=== PATIENT | female | born 1995 | race Caucasian/White ===

== ENCOUNTER 2023-05-05 11:44 | Emergency (ER) | payer BC, SELFPAY ==
[2023-05-05] VITALS (14 sets, daily range): BP systolic 107–135; BP diastolic 73–84; PULSE 72–87; RESP 14–20; TEMP 36.7; O2SAT 98; BMI 44.8
--- NOTE | 2023-05-05 12:12 | ED_ITS ---
HPI - General Adult General Chief complaint: Neuro Symptoms/Deficit Stated complaint: NUMBNESS TO FACE Time Seen by Provider: 05/05/23 12:12 Source: patient Mode of arrival: ambulance Limitations: no limitations History of Present Illness HPI narrative: Patient presents to emergency department via EMS with a complaint of numbness to her face, bilateral hands and lower extremities. Patient states she had a panic attack yesterday she has a history of anxiety. However this morning she was having another attack but she states that she never felt it to the point where it was as numbness was today. She takes Wellbutrin. She states she's felt dizzy. She denies any headache. She denies any trauma. She denies any nausea, vomiting, diarrhea, constipation, abdominal pain. She denies any chest pain. Has no previous history of heart disease or thrombotic embolic disease. Patient denies any blurred vision, or speech difficulties. She denies any difficulty swallowing. She denies any lower extremity edema, or cramping. Related Data Previous Rx's Medication Instructions Recorded hydroxyzine HCl 25 mg tablet 25 mg PO Q8H PRN anxiety #20 tabs 05/05/23 Allergies Allergy/AdvReac Type Severity Reaction Status Date / Time doxycycline AdvReac Mild Rash Verified 05/05/23 11:54 Review of Systems ROS Status of ROS 10 or more systems reviewed and unremarkable except as noted in history and below [facility] Social History Smoking status: Current every day smoker Exam Narrative Exam Narrative: Nurses notes and vital signs reviewed and patient is not hypoxic. General: Nontoxic, Well-appearing and in no apparent distress. Skin: Warm, dry, no pallor noted. No Rash Head: Normocephalic, atraumatic. Neck: Supple, non-tender. Eye: Pupils are equal, round and EOMI. No scleral icterus. Ears, Nose, Mouth, and Throat: TM clear, no posterior oropharynx erythema or nasal mucosal hypertrophy, uvula is mid-line Oral mucosa is moist Cardiovascular: Regular Rate and Rhythm without murmur, gallop or rub. Respiratory: No accessory muscle use or respiratory distress. Lungs are clear to auscultation, no wheezing, rales or rhonchi Chest Wall: no tenderness Back: No midline thoracic or lumbar vertebral tenderness. No CVA tenderness Musculoskeletal: normal ROM, no calf or popliteal tenderness, no lower extremity edema/swelling GI: Abdomen is soft, non-distended. Normal bowel sounds. No masses appreciated. No tenderness to palpation. No rebound, guarding, or rigidity noted. Neurological: A&O x4. No cranial nerve dysfunction observed. No truncal ataxia. Moves all extremities. Sensation intact. Psychiatric: Cooperative and interactive. anxiety Constitutional Vital Signs, click to edit/add: Last Vital Signs Temp 98.1 F 05/05/23 11:48 Pulse 77 05/05/23 13:30 Resp 18 05/05/23 13:30 BP 122/82 05/05/23 13:30 Pulse Ox 98 05/05/23 11:48 O2 Del Method Room Air 05/05/23 11:48 Course Vital Signs Vital signs: Vital Signs Blood Pressure 135/78 05/05/23 11:45 Temperature 98.1 F 05/05/23 11:48 Pulse Rate 77 05/05/23 13:30 Respiratory Rate 18 05/05/23 13:30 Blood Pressure 122/82 05/05/23 13:30 Pulse Oximetry 98 05/05/23 11:48 Oxygen Delivery Method Room Air 05/05/23 11:48 Medical Decision Making MDM Narrative Medical decision making narrative: EKG shows the patient is on bigeminy. The patient's blood pressure is normal. Patient is anxious. She is given 1 mg of Ativan by mouth. This has completely resolved her symptoms. However patient did go back into bigeminy. All labs studies are unremarkable. Patient will be discussed with Dr. meade. forging press operator. She was discussed with nurse practitioner for the forging press operator was advised to place an event monitor for 72 hours and order an echo as an outpatient and the patient should follow-up with them Monday morning. Patient remains asymptomatic. In terms have improved with Ativan. I will give the patient a prescription for hydroxyzine. At this time the patient is without objective evidence of an acute process requiring hospitalization or inpatient management. The patient has remained hemodynamically stable. No additional indication for emergent studies at this time. I answered all questions. Discussed discharge instructions including standard anticipatory guidance and what should prompt a return to the emergency department, including if they get worse are not getting better or develops any new or concerning symptoms. I've given them specific time frame in which to follow-up, and who to follow-up with. The patient demonstrates understanding. Patient is nontoxic and stable for discharge with outpatient follow-up. This note was created with the assistance of a speech recognition program. Although the intention is to generate documents that actually reflects the content of the visit, no guarantees can be provided that every mistake has been identified and corrected by editing. Lab Data Lab results reviewed: Yes I reviewed the patient's lab results Labs: Lab Results 05/05/23 Range/Units 12:04 WBC 7.1 (4.0-11.0) 10^3/uL RBC 4.58 (4.20-5.40) 10^6/uL Hgb 13.3 (12.0-16.0) g/dL Hct 40.0 (36.0-48.0) % MCV 87.3 (81.0-99.0) fL MCH 29.0 (26.7-34.0) pg MCHC 33.3 (29.9-35.2) g/dL RDW 11.9 (11.0-15.0) % Plt Count 299 (150-450) 10^3/uL MPV 10.4 (9.5-13.5) fL Neut % (Auto) 70.6 (43.0-75.0) % Lymph % (Auto) 19.6 L (20.5-60.0) % [place] % (Auto) 7.2 (1.7-12.0) % Eos % (Auto) 1.6 (0.9-7.0) % Baso % (Auto) 0.7 (0.2-2.0) % Neut # (Auto) 5.0 (1.4-6.5) 10^3/uL Lymph # (Auto) 1.4 (1.2-3.8) 10^3/uL [place] # (Auto) 0.5 (0.3-0.8) 10^3/uL Eos # (Auto) 0.1 (0.0-0.7) 10^3/uL Baso # (Auto) 0.1 (0.0-0.1) 10^3/uL Abs Immat Gran (auto) 0.02 (0.00-0.03) 10^3/uL Imm/Tot Granulo (auto) 0.3 (0.0-0.5) % Sodium 138 (136-145) mmol/L Potassium 4.7 (3.5-5.1) mmol/L Chloride 104 (98-107) mmol/L Carbon Dioxide 22.8 (21.0-32.0) mmol/L Anion Gap 15.9 BUN 8.0 (7.0-18.0) mg/dL Creatinine 0.71 (0.55-1.02) mg/dL Est GFR ( Amer) >60 (>=60) Est GFR (Non-Af Amer) >60 (>=60) BUN/Creatinine Ratio 11.3 Glucose 96 (74-106) mg/dL Calcium 9.2 (8.5-10.1) mg/dL Magnesium 1.9 (1.8-2.4) mg/dL Total Bilirubin 0.8 (0.2-1.0) mg/dL AST 29 (15-37) U/L ALT 22 (14-59) U/L Alkaline Phosphatase 63 (46-116) U/L Troponin I High Sens <4.0 L (4.0-51.3) pg/mL Total Protein 7.4 (6.4-8.2) g/dL Albumin 3.6 (3.4-5.0) g/dL Globulin 3.8 g/dL Albumin/Globulin Ratio 0.9 TSH 1.977 (0.358-3.740) uIU/mL ECG Data Attestation: I personally reviewed and interpreted this ECG as follows: Interpretation: Sinus rhythm 79 bpm. Frequent PVCs showing bigeminy pattern. Discharge Plan Discharge Chief Complaint: Neuro Symptoms/Deficit Clinical Impression: Bigeminy, Anxiety Patient Disposition: Home, Self-Care Time of Disposition Decision: 14:11 Condition: Good Mode of Transportation: Private Vehicle Prescriptions / Home Meds: New hydroxyzine HCl 25 mg tablet 25 mg PO Q8H PRN (Reason: anxiety) Qty: 20 0RF Instructions: Anxiety (ED) Additional Instructions: use the event monitor as instructed. Follow up with the forging press operator Monday morning for reevaluation. Get the echocardiogram done as an outpatient. Take the medication as needed for anxiety. Return to the emergency department (presents as discussed. Stand Alone Forms: Portal Instructions Referrals: Sid Cunningham MD [Physician] - 1 week
--- NOTE | 2023-05-05 12:20 | XR_ITS ---
[facility] [place] [address] Patient Name: HILARIO PHIPPS MRN: [id number] date: 1995 Sex: F Assigned Patient Location: ER Current Patient Location: ER Accession/Order Number: [id number] Exam Date: 05/05/2023 12:35 Report Date: 05/05/2023 13:12 At the request of: NAKIA BALDWIN Procedure: XR chest 1V XR chest 1V, 05/05/2023 12:35 PM EDT, OH001 INDICATION: anxiety COMPARISON: None TECHNIQUE: Frontal view of the chest obtained. FINDINGS: The heart is normal in size. The aorta and mediastinum appear unremarkable. The pulmonary vasculature is normal. The lungs are clear. There is no evidence of pneumothorax or pleural effusion. The osseous structures appear intact. XR/XR chest 1V IMPRESSION: No active pulmonary process. Electronically authenticated by: DAJA SUGGS Date: 05/05/2023 13:12
[2023-05-05] MEDS: LORAZEPAM 1 MG TABLET PO (12:27)
[2023-05-05 12:40] LABS: Basophils Absolute Auto 0.1 10^3/uL (0.0-0.1); Basophils Percent Auto 0.7 % (0.2-2.0); Eosinophils Absolute Auto 0.1 10^3/uL (0.0-0.7); Eosinophils Percent Auto 1.6 % (0.9-7.0); Hemoglobin 13.3 g/dL (12.0-16.0); Immature Granulocytes Abs Auto 0.02 10^3/uL (0.00-0.03); Immature Granulocytes Pct Auto 0.3 % (0.0-0.5); Lymphocytes Absolute Auto 1.4 10^3/uL (1.2-3.8); Lymphocytes Percent Auto 19.6 % (20.5-60.0); Mean Corpuscular HGB Conc 33.3 g/dL (29.9-35.2); Mean Corpuscular Volume 87.3 fL (81.0-99.0); Mean Platelet Volume 10.4 fL (9.5-13.5); Monocytes Absolute Auto 0.5 10^3/uL (0.3-0.8); Monocytes Percent Auto 7.2 % (1.7-12.0); Neutrophils Percent Auto 70.6 % (43.0-75.0); Platelet Count 299 10^3/uL (150-450); Red Blood Count 4.58 10^6/uL (4.20-5.40); Red Cell Distribution Width 11.9 % (11.0-15.0); White Blood Count 7.1 10^3/uL (4.0-11.0)
[2023-05-05 12:50] LABS: Anion Gap 15.9
[2023-05-05 13:00] LABS: Alanine Aminotransferase 22 U/L (14-59); Albumin Globulin Ratio 0.9; Albumin Level 3.6 g/dL (3.4-5.0); Alkaline Phosphatase 63 U/L (46-116); Aspartate Amino Transferase 29 U/L (15-37); BUN Creatinine Ratio 11.3; Bilirubin Total 0.8 mg/dL (0.2-1.0); Calcium 9.2 mg/dL (8.5-10.1); Carbon Dioxide 22.8 mmol/L (21.0-32.0); Chloride 104 mmol/L (98-107); Estimated GFR (African America >60 (>=60); Estimated GFR (Non-African Ame >60 (>=60); Globulin 3.8 g/dL; Glucose 96 mg/dL (74-106); Magnesium 1.9 mg/dL (1.8-2.4); Potassium 4.7 mmol/L (3.5-5.1); Sodium 138 mmol/L (136-145); Thyroid Stimulating Hormone 1.977 uIU/mL (0.358-3.740); Total Protein 7.4 g/dL (6.4-8.2); Troponin I High Sensitivity <4.0 pg/mL (4.0-51.3)
--- NOTE | 2023-05-05 14:04 | CA_ITS ---
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1995 Requested By: [id number] Order Number: [id number] Reading MD: ANTHONY GARZA Interpretive Statements Predominant rhythm is sinus w/ average rate of 88 bpm Tachycardia - max rate of 149 bpm - longest episode of 1h 54min 26sec w/ rate of 110 bpm Bradycardia - min rate of 51 bpm, occurring at 0634 - longest episode of 10h 59min 30sec w/ rate of 51 bpm Ventricular ectopy - 44,622 total (15%) - 8,305 PVC - 44 couplets - 35,390 bigeminy - 883 trigeminy Patient triggered events: 7 - associated with lightheadedness and SOB - associated with rates of 109, 108, 121, 112 and NSR - associcatd with VE Impression: Predominant rhythm is sinus w/ average rate of 88 bpm Fastest rate of 149 bpm and slowest rate of 51 bpm Significant ventricular ectopy of 15% total - PVC, couplets, bigeminy, trigeminy - no episodes of NSVT recorded No pauses or blocks Electronically Signed On 05-17-2023 7:23:14 EDT by ANTHONY GARZA
== END 2023-05-05 15:05 | disposition home or self-care (01) ==
PROVIDERS: Emergency Provider Emergency Medicine
DX: F41.9 Anxiety disorder, unspecified (principal); R00.8 Other abnormalities of heart beat; Z79.899 Other long term (current) drug therapy; F17.210 Nicotine dependence, cigarettes, uncomplicated
CPT/HCPCS: 36415; 71045; 80053; 83735; 84443; 84484; 85025; 93005; 93242; 99285

== ENCOUNTER 2023-06-01 14:46 | Outpatient (OUT) | payer BC, SELFPAY ==
--- NOTE | 2023-06-01 15:39 | CA_ITS ---
Patient: HILARIO PHIPPS Exam Date: 06/01/2023 : 1995 Gender:F Ordering : NAKIA BALDWIN . Admission #: [id number] Family : CHRISTEL DAVILA Order #: [id number] CLICK HERE TO VIEW EXAM ECHOCARDIOGRAM REPORT PROCEDURE: CA ECHO DOPPLER COMPLETE INDICATIONS: Bigeminy, Palpitations, Dizziness COMPARISON: None. DESCRIPTION: COMPLETE ECHOCARDIOGRAM Real-time transthoracic echocardiography with 2D, M-mode, spectral and color flow Doppler performed. QUALITY: Technical quality was good. LEFT VENTRICLE: Normal chamber size. Normal left ventricular wall thickness. LV EF: Global left ventricular systolic function is normal. Calculated left ventricular ejection fraction is 67%. DIASTOLIC: Normal diastolic function. ATRIAL SEPTUM: Inadequately seen. LEFT ATRIUM: Normal chamber size. RIGHT ATRIUM: Normal chamber size. RIGHT VENTRICLE: Normal chamber size. Normal right ventricular systolic function. TRICUSPID VALVE: Normal mobility and thickness. No stenosis with trivial regurgitation. No evidence of pulmonary hypertension. RVSP 23mmHg MITRAL VALVE: Normal mobility and thickness. No evidence of mitral valve stenosis. There is no mitral annular calcification. No mitral regurgitation. AORTIC VALVE: Normal trileaflet appearance. No visible sclerosis. Normal leaflet mobility. No evidence of aortic valve stenosis. No aortic regurgitation. AORTIC ROOT: Normal diameter and appearance. PULMONIC VALVE: Normal thickness and mobility. No stenosis. No regurgitation. PERICARDIUM: Anterior free space; trivial effusion versus fat pad. IVC: Collapses with inspirations. Normal size CONCLUSION: Global left ventricular systolic function is normal; visually estimated ejection fraction is 60 to 65%. The right ventricle is normal in size and systolic function. No significant valvular abnormalities. Anterior free space; trivial effusion versus fat pad. Adult Echocardiography Procedure Report Left Ventricle LVEDD (3.7 - 5.6 cm): 4.59 cm LVESD (2.2 - 4.0 cm): 3.30 cm LVIVS thickness (0.6 - 1.2 cm): 0.93 cm LVPW thickness (0.5 - 1.0 cm): 0.88 cm e': 0.16 m/s E - e': 4.01 LVOT Max Gradient: 3.61 mm[Hg], 3.73 mm[Hg] LVOT Area (cm2): 0.96 m/s Peak Velocity (LVOT): 0.95 m/s, 0.97 m/s Mean Velocity (LVOT): 0.64 m/s LVOT Diameter 2.07 cm Left Ventricular Ejection Fraction: 66.86 % Left Atrium LA Volume Index (2D A2C): 25.36 ml/m2 Left Atrium Systolic Dimension: 3.20 cm Mitral Valve MV E to A Ratio: 1.40, 1.50 Mitral Valve A-Wave Peak Velocity: 0.44 m/s Mitral Valve E-Wave Peak Velocity: 0.64 m/s Right Ventricle RV Internal Diastolic Dimension: 2.77 cm Aorta AO Root Diam: 2.69 cm Ascending Ao Diam: 2.27 cm Aortic Valve AoV Area (Peak Stevan): 2.77 cm2, 2.75 cm2, 2.80 cm2 AoV Area (VTI): 2.73 cm2, 2.70 cm2, 2.77 cm2 Peak Velocity(Antegrade Flow): 1.16 m/s, 1.16 m/s Peak Gradient(Antegrade Flow): 5.42 mm[Hg], 5.42 mm[Hg] Mean Velocity(Antegrade Flow): 0.84 m/s, 0.83 m/s Mean Gradient(Antegrade Flow): 3.20 mm[Hg], 3.11 mm[Hg] Velocity Time Integral: 23.92 cm, 23.51 cm Tricuspid Valve Peak Velocity (Regurgitant Flow): 2.24 m/s, 2.15 m/s Pulmonic Valve Mean Gradient: 3.07 mm[Hg], 2.55 mm[Hg], 1.67 mm[Hg] Mean Velocity: 0.85 m/s, 0.76 m/s, 0.60 m/s Peak Velocity: 1.00 m/s Peak Gradient: 4.72 mm[Hg], 4.12 mm[Hg], 3.31 mm[Hg] Right Atrium Right Atrium Systolic Pressure: 40.40 ml, 40.40 ml Dictated by: Kim Nava M.D. on 06/05/2023 at 16:12 Approved by: Kim Nava M.D. on 06/05/2023 at 16:14
== END 2023-06-01 14:47 | disposition home or self-care (01) ==
LOC: CARD 14:48
PROVIDERS: PCP Nurse Practitioner Family; Visit Provider Emergency Medicine
DX: R42 Dizziness and giddiness (principal); R00.2 Palpitations; R00.8 Other abnormalities of heart beat
CPT/HCPCS: 93306

== ENCOUNTER 2024-11-04 22:08 | Emergency (ER) | payer OTHER, SELFPAY ==
[2024-11-04 22:19] VITALS: BP 141/98; PULSE 99; TEMP 36.9; O2SAT 98; BMI 96.6
--- NOTE | 2024-11-04 22:25 | ECG_ITS ---
The 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
--- NOTE | 2024-11-04 22:41 | ED_ITS ---
HPI - SOB/Dyspnea General Chief Complaint: Shortness of Breath/Dyspnea Stated Complaint: Shortness of breath Time Seen by Provider: 11/04/24 22:32 Source: patient Mode of arrival: walk-in Limitations: no limitations History of Present Illness HPI Narrative: This 29-year-old female, smoker who is moderately overweight presents for evaluation of shortness of breath. She has had a lot of nasal congestion and a dry cough and this evening started developing some shortness of breath. She states she can breathe in but feels that she cannot breathe out. She denies any fevers or chills. Her cough is nonproductive. She states her chest feels tight but denies any specific pain complaints or radiation of her pain. She has no abdominal pain or back pain. She has no lower extremity pain or swelling. She denies the possibility of because she is currently on her period Related Data Previous Rx's ?Medication ?Instructions ?Recorded hydroxyzine HCl 25 mg tablet 25 mg PO Q8H PRN anxiety #20 tabs 05/05/23 Allergies Allergy/AdvReac Type Severity Reaction Status Date / Time doxycycline AdvReac Mild Rash Verified 11/04/24 22:22 Review of Systems ROS Status of ROS 10 or more systems reviewed and unremark able except as noted in history and below PFSH PFSH Social History Smoking status: Current every day smoker Little interest or pleasure in doing things: not at all Feeling down, depressed, or hopeless: not at all Exam Narrative Exam Narrative: Vital signs and Nursing Notes reviewed: Patient is afebrile with a normal pulse, she is tachypneic with respirate of 24 and blood pressure is elevated 144/98 she is not hypoxic with pulse ox of 98% on room air General: Awake, alert, oriented, anxious overweight female, no respiratory distress HEENT: Normocephalic atraumatic, mucous membranes are moist and pink, eyes are clear, normal conjunctiva, vision is grossly intact, posterior pharynx is normal in appearance. Chest: Coarse breath sounds with faint expiratory wheezing, no rhonchi or rales appreciated, no accessory muscle use, patient is speaking complete sentences and pulse ox is normal at 98% on room air CVS: Regular rate and rhythm S1-S2, no murmurs rubs or gallops, pulses are brisk and equal bilaterally ABD: Soft, nondistended, nontender, no rebound guarding or rigidity, bowel sounds are normal, no pulsatile masses appreciated Extremities: Moving all extremities, no lower extremity tenderness or swelling noted, negative Homans' sign, pulses are brisk and equal bilaterally Skin: Normal in appearance without rash,pallor, petechiae or purpura Neuro: No focal deficits Constitutional Vital Signs, click to edit/add: Last Vital Signs Temp 98.5 F 11/04/24 22:19 Pulse 74 11/04/24 23:02 Resp 20 11/04/24 23:13 BP 141/98 H 11/04/24 22:19 Pulse Ox 98 11/04/24 23:02 O2 Del Method Room Air 11/04/24 23:02 Course Vital Signs Vital signs: Vital Signs Temperature 98.5 F 11/04/24 22:19 Pulse Rate 99 H 11/04/24 22:19 Respiratory Rate 24 H 11/04/24 22:19 Blood Pressure 141/98 H 11/04/24 22:19 Pulse Oximetry 98 11/04/24 22:19 Oxygen Delivery Method Room Air 11/04/24 22:19 Temperature 98.5 F 11/04/24 22:19 Pulse Rate 74 11/04/24 23:02 Respiratory Rate 20 11/04/24 23:13 Blood Pressure 141/98 H 11/04/24 22:19 Pulse Oximetry 98 11/04/24 23:02 Oxygen Delivery Method Room Air 11/04/24 23:02 MDM - SOB/Dyspnea MDM Narrative Medical decision making narrative: This 29-year-old female who is overweight and a smoker presents for evaluation of shortness of breath with nasal congestion and chest congestion. Her congestion started yesterday but she became short of breath tonight. She states she can breathing but feels like she cannot breathe out. She does have a history of anxiety. She had diminished breath sounds on her exam. Her vital signs were otherwise stable. EKG done upon arrival is a sinus rhythm at 88 bpm with no acute changes. She was given a DuoNeb treatment and a workup including CBC with differential, comprehensive metabolic profile, D-dimer and swabs for COVID-19 RSV and influenza were ordered. She has a normal white count and hemoglobin. D-dimer is normal. Comprehensive metabolic profile is normal. She is negative for COVID, influenza and RSV. On reevaluation after the DuoNeb she feels like she is breathing better. I reevaluated her and she does appear to have improved lung sounds. Chest x-ray was ordered and reviewed by myself. It does not show any acute pulmonary infiltrate, normal cardiac borders and mediastinum are noted. She states she has cough medicine at home and I will discharge her with a prescription for albuterol. Lab Data Attestation: I reviewed the patient's lab results. Labs: Lab Results 11/04/24 11/04/24 Range/Units 23:02 23:05 WBC 8.8 (4.0-11.0) 10^3/uL RBC 4.40 (4.20-5.40) 10^6/uL Hgb 12.6 (12.0-16.0) g/dL Hct 38.2 (36.0-48.0) % MCV 86.8 (81.0-99.0) fL MCH 28.6 (26.7-34.0) pg MCHC 33.0 (29.9-35.2) g/dL RDW 12.1 (11.0-15.0) % Plt Count 353 (150-450) 10^3/uL MPV 9.3 L (9.5-13.5) fL Neut % (Auto) 57.9 (43.0-75.0) % Lymph % (Auto) 31.7 (20.5-60.0) % [place] % (Auto) 7.8 (1.7-12.0) % Eos % (Auto) 1.6 (0.9-7.0) % Baso % (Auto) 0.8 (0.2-2.0) % Neut # (Auto) 5.1 (1.4-6.5) 10^3/uL Lymph # (Auto) 2.8 (1.2-3.8) 10^3/uL [place] # (Auto) 0.7 (0.3-0.8) 10^3/uL Eos # (Auto) 0.1 (0.0-0.7) 10^3/uL Baso # (Auto) 0.1 (0.0-0.1) 10^3/uL Abs Immat Gran (auto) 0.02 (0.00-0.03) 10^3/uL Imm/Tot Granulo (auto) 0.2 (0.0-0.5) % D-Dimer 0.37 (<=0.59) mg/L FEU Sodium 140 (136-145) mmol/L Potassium 3.7 (3.5-5.1) mmol/L Chloride 105 (98-107) mmol/L Carbon Dioxide 23.8 (21.0-32.0) mmol/L Anion Gap 14.9 BUN 14.0 (7.0-18.0) mg/dL Creatinine 0.93 (0.55-1.02) mg/dL Est GFR ( Amer) >60 (>=60 mL/min/1.73m^2) Est GFR (Non-Af Amer) >60 (>=60 mL/min/1.73m^2) BUN/Creatinine Ratio 15.1 Glucose 104 (74-106) mg/dL Calcium 9.2 (8.5-10.1) mg/dL Total Bilirubin 0.2 (0.2-1.0) mg/dL AST 13 L (15-37) U/L ALT 20 (14-59) U/L Alkaline Phosphatase 77 (46-116) U/L Total Protein 7.1 (6.4-8.2) g/dL Albumin 3.4 (3.4-5.0) g/dL Globulin 3.7 g/dL Albumin/Globulin Ratio 0.9 Influenza Type A Ag Negative Influenza Type B Ag Negative RSV Antigen Not detected (NOT DETECTE) SARS-CoV-2 Ag (CV2AG) Negative (NEGATIVE) ECG Data Attestation: I personally reviewed and interpreted this ECG as follows: (Normal sinus rhythm 88 bpm, normal axis, normal intervals, no acute ST segment elevation or T wave inversion) Discharge Plan Discharge Chief Complaint: Shortness of Breath/Dyspnea Clinical Impression: Viral upper respiratory tract infection with cough Patient Disposition: Home, Self-Care Time of Disposition Decision: 00:54 Condition: Good Prescriptions / Home Meds: No Action hydroxyzine HCl 25 mg tablet 25 mg PO Q8H PRN (Reason: anxiety) Qty: 20 0RF Print Language: Malagasy Instructions: Upper Respiratory Infection (ED) Referrals: REGIS PEREZ [Primary Care Provider] - 1 week
[2024-11-04] MEDS: IPRATROPIUM/ALBUTEROL SULFATE 3 ML AMPUL.NEB IH (23:01)
[2024-11-04 23:02] VITALS: PULSE 74; O2SAT 98
[2024-11-04 23:18] LABS: Basophils Absolute Auto 0.1 10^3/uL (0.0-0.1); Basophils Percent Auto 0.8 % (0.2-2.0); Eosinophils Absolute Auto 0.1 10^3/uL (0.0-0.7); Eosinophils Percent Auto 1.6 % (0.9-7.0); Hematocrit 38.2 % (36.0-48.0); Hemoglobin 12.6 g/dL (12.0-16.0); Immature Granulocytes Abs Auto 0.02 10^3/uL (0.00-0.03); Immature Granulocytes Pct Auto 0.2 % (0.0-0.5); Lymphocytes Absolute Auto 2.8 10^3/uL (1.2-3.8); Lymphocytes Percent Auto 31.7 % (20.5-60.0); Mean Corpuscular Hemoglobin 28.6 pg (26.7-34.0); Mean Corpuscular Volume 86.8 fL (81.0-99.0); Mean Platelet Volume 9.3 fL (9.5-13.5); Monocytes Absolute Auto 0.7 10^3/uL (0.3-0.8); Monocytes Percent Auto 7.8 % (1.7-12.0); Neutrophils Absolute Auto 5.1 10^3/uL (1.4-6.5); Neutrophils Percent Auto 57.9 % (43.0-75.0); Platelet Count 353 10^3/uL (150-450); Red Cell Distribution Width 12.1 % (11.0-15.0); White Blood Count 8.8 10^3/uL (4.0-11.0)
[2024-11-04 23:32] LABS: Influenza Virus A Antigen Negative; Influenza Virus B Antigen Negative; Internal Control Within Normal Limits; Respiratory Syncytial Virus Not Detected (NOT DETECTE); SARS-CoV-2 Ag NEGATIVE (NEGATIVE)
[2024-11-04 23:33] LABS: Alanine Aminotransferase 20 U/L (14-59); Albumin Globulin Ratio 0.9; Albumin Level 3.4 g/dL (3.4-5.0); Alkaline Phosphatase 77 U/L (46-116); Anion Gap 14.9; Aspartate Amino Transferase 13 U/L (15-37); BUN Creatinine Ratio 15.1; Bilirubin Total 0.2 mg/dL (0.2-1.0); Calcium 9.2 mg/dL (8.5-10.1); Carbon Dioxide 23.8 mmol/L (21.0-32.0); Chloride 105 mmol/L (98-107); Estimated GFR (African America >60 (>=60 mL/min/1.73m^2); Estimated GFR (Non-African Ame >60 (>=60 mL/min/1.73m^2); Globulin 3.7 g/dL; Glucose 104 mg/dL (74-106); Potassium 3.7 mmol/L (3.5-5.1); Sodium 140 mmol/L (136-145); Total Protein 7.1 g/dL (6.4-8.2)
[2024-11-04 23:39] LABS: D Dimer 0.37 mg/L FEU (<=0.59)
== END 2024-11-05 01:08 | disposition home or self-care (01) ==
PROVIDERS: Emergency Provider Emergency Medicine; PCP Nurse Practitioner Family
DX: J06.9 Acute upper respiratory infection, unspecified (principal); R05.9 Cough, unspecified; R06.02 Shortness of breath; F17.200 Nicotine dependence, unspecified, uncomplicated; E66.3 Overweight; F41.9 Anxiety disorder, unspecified
CPT/HCPCS: 36415; 71045; 80053; 85025; 85378; 87420; 87804; 87811; 93005; 94640; 99285